=== PATIENT | female | born 1945 | race Hispanic/Latino ===

== ENCOUNTER → 2017-06-29 | Outpatient (CLI) | payer MEDICARE | END | disposition home or self-care (01) | LOC: RAH 10:48 | PROVIDERS: ATTEND Internal Medicine | DX: M41.55 Other secondary scoliosis, thoracolumbar region (principal) | CPT/HCPCS: 72082 ==

== ENCOUNTER → 2017-09-15 | Outpatient (CLI) | payer MEDICARE | END | disposition home or self-care (01) | LOC: OIH 11:01 | PROVIDERS: ATTEND Internal Medicine | DX: I70.0 Atherosclerosis of aorta (principal) | CPT/HCPCS: 71046 ==

== ENCOUNTER → 2018-06-07 | Outpatient (CLI) | payer MEDICARE | END | disposition home or self-care (01) | LOC: OIH 11:41 | PROVIDERS: ATTEND Internal Medicine | DX: S22.080A Wedge compression fracture of T11-T12 vertebra, initial encounter for closed fracture (principal); M85.88 Other specified disorders of bone density and structure, other site; M47.814 Spondylosis without myelopathy or radiculopathy, thoracic region; X58.XXXA Exposure to other specified factors, initial encounter; Y93.89 Activity, other specified; Y92.89 Other specified places as the place of occurrence of the external cause; Y99.8 Other external cause status | CPT/HCPCS: 72070 ==

== ENCOUNTER 2018-07-18 13:39 | Emergency (ER) | payer MEDICARE ==
[2018-07-18] MEDS ORDERED: IBUPROFEN 400 MG TABLET ONE (14:10)
[2018-07-18] MEDS ORDERED: ACETAMINOPHEN-CODEINE 300/30MG TAB ONE (15:04)
== END 2018-07-18 15:39 | disposition home or self-care (01) ==
LOC: EDH 13:39
DX: S42.292A Other displaced fracture of upper end of left humerus, initial encounter for closed fracture (principal); E11.9 Type 2 diabetes mellitus without complications; I10 Essential (primary) hypertension; E07.9 Disorder of thyroid, unspecified; M06.80 Other specified rheumatoid arthritis, unspecified site; Z90.710 Acquired absence of both cervix and uterus; Z88.1 Allergy status to other antibiotic agents; W18.39XA Other fall on same level, initial encounter; Y93.01 Activity, walking, marching and hiking; Y92.89 Other specified places as the place of occurrence of the external cause; Y99.8 Other external cause status
CPT/HCPCS: 73030; 73200

== ENCOUNTER → 2019-06-14 | Outpatient (CLI) | payer MEDICARE | END | disposition home or self-care (01) | LOC: RAH 09:50 | PROVIDERS: ATTEND Internal Medicine | DX: I27.0 Primary pulmonary hypertension (principal); R10.813 Right lower quadrant abdominal tenderness; J98.11 Atelectasis | CPT/HCPCS: 74176 ==

== ENCOUNTER → 2020-01-31 | Outpatient (CLI) | payer MEDICARE | END | disposition home or self-care (01) | LOC: SHCH 09:42 | PROVIDERS: ATTEND Internal Medicine Cardiovascular Disease | DX: I51.7 Cardiomegaly (principal); R01.0 Benign and innocent cardiac murmurs; K21.9 Gastro-esophageal reflux disease without esophagitis; I87.2 Venous insufficiency (chronic) (peripheral) | CPT/HCPCS: 93306; 93970 ==

== ENCOUNTER → 2020-02-02 | Outpatient (CLI) | payer MEDICARE ==
[~2020-02-02] MED LIST: REGADENOSON 0.4 MG/5 ML PF SYG IVP SCH
== END | disposition home or self-care (01) ==
LOC: SHCH 07:40
PROVIDERS: ATTEND Internal Medicine Cardiovascular Disease
DX: I20.9 Angina pectoris, unspecified (principal); R07.9 Chest pain, unspecified
CPT/HCPCS: 78452; 93017; 96374; A9500 ×2; J2785

== ENCOUNTER → 2020-02-22 | Outpatient (CLI) | payer MEDICARE | END | disposition home or self-care (01) | LOC: RAH 09:20 | PROVIDERS: ATTEND Internal Medicine | DX: K55.039 Acute (reversible) ischemia of large intestine, extent unspecified (principal); R10.9 Unspecified abdominal pain; M47.816 Spondylosis without myelopathy or radiculopathy, lumbar region; J98.11 Atelectasis; M43.8X4 Other specified deforming dorsopathies, thoracic region; Z90.710 Acquired absence of both cervix and uterus; Z95.0 Presence of cardiac pacemaker | CPT/HCPCS: 74176 ==

== ENCOUNTER 2021-01-23 10:49 | Observation (INO) | payer MEDICARE ==
[~2021-01-23] VITALS: Ht 160 cm; Wt 68.3 kg
[2021-01-23 10:53] VITALS: BP 150/63
[2021-01-23] MEDS ORDERED: ONDANSETRON 4MG INJ IVP SCH (12:00)
[2021-01-23] MEDS ORDERED: MORPHINE 4 MG SYG IV SCH (12:00)
[2021-01-23 12:18] LABS: BASOPHILS % (AUTO) 0.3 % (0.0-5.0); EOSINOPHILS % (AUTO) 0.1 % (0.0-8.0); HEMATOCRIT 39.7 % (36-48); LYMPHOCYTES % (AUTO) 8.6 % (21.0-51.0); MEAN CORPUSCULAR HEMOGLOBIN 26.4 pg (27.0-33.0); MEAN CORPUSCULAR HGB CONC 31.7 g/dL (32.0-36.0); MEAN CORPUSCULAR VOLUME 83.2 fL (79-99); NEUTROPHILS % (AUTO) 85.7 % (40.0-77.0); PLATELET COUNT (AUTO) 266 K/uL (130-400); RED BLOOD CELL COUNT(AUTO) 4.77 MIL/uL (4.00-5.50); RED CELL DISTRIBUTION WIDTH 14.2 % (11.0-15.5); WHITE BLOOD COUNT (AUTO) 15.1 K/uL (4.8-10.8)
[2021-01-23 12:27] LABS: CREATININE 0.7 mg/dL (0.5-1.5)
[2021-01-23 12:32] LABS: ALBUMIN 4.2 g/dL (3.5-5.0); BILIRUBIN,TOTAL 0.5 mg/dL (0.2-1.0); TOTAL PROTEIN, SERUM 8.6 g/dL (6.0-8.3)
[2021-01-23 13:27] VITALS: BP 176/61
[2021-01-23] MEDS ORDERED: INSULIN HUMULIN R 100 UNIT/ML 3ML ONE (16:40)
[2021-01-23] MEDS: ENOXAPARIN SODIUM 40 MG/0.4 ML SYRINGE SQ SCH (16:40)
[2021-01-23] MEDS: 1/2 NS 1000ML 1,000 ML IV SCH (16:50)
[2021-01-23 17:00] VITALS: BP 151/65
[2021-01-23] MEDS ORDERED: GLUCAGON 1MG KIT 1 MG ML IM PRN (17:00)
[2021-01-23] MEDS ORDERED: ONDANSETRON 4MG INJ IVP PRN (17:00)
[2021-01-23] MEDS ORDERED: DEXTROSE 50%-WATER 50 ML DISP.SYRIN IV PRN (17:00)
[2021-01-23] MEDS ORDERED: ACETAMINOPHEN WITH CODEINE 1 TAB TAB PO PRN (18:30)
[2021-01-23 19:51] VITALS: BP 151/65
[2021-01-23] MEDS: INSULIN R PO SS1 SQ SCH (21:24)
[2021-01-23 21:43] VITALS: BP 145/61
[2021-01-23 22:14] VITALS: BP 169/82
[2021-01-24 03:44] VITALS: BP 156/63
[2021-01-24] MEDS: 1/2 NS 1000ML 1,000 ML IV SCH ×2 (04:20→11:52)
[2021-01-24 04:56] LABS: BASOPHILS % (AUTO) 0.3 % (0.0-5.0); EOSINOPHILS % (AUTO) 0.6 % (0.0-8.0); HEMATOCRIT 33.1 % (36-48); LYMPHOCYTES % (AUTO) 24.7 % (21.0-51.0); MEAN CORPUSCULAR HEMOGLOBIN 26.6 pg (27.0-33.0); MEAN CORPUSCULAR HGB CONC 32.3 g/dL (32.0-36.0); MEAN CORPUSCULAR VOLUME 82.3 fL (79-99); MONOCYTES % (AUTO) 8.6 % (3.0-13.0); NEUTROPHILS % (AUTO) 64.9 % (40.0-77.0); PLATELET COUNT (AUTO) 237 K/uL (130-400); RED BLOOD CELL COUNT(AUTO) 4.02 MIL/uL (4.00-5.50); RED CELL DISTRIBUTION WIDTH 14.4 % (11.0-15.5); WHITE BLOOD COUNT (AUTO) 10.8 K/uL (4.8-10.8)
[2021-01-24 05:20] LABS: ALBUMIN 3.4 g/dL (3.5-5.0); BILIRUBIN,TOTAL 0.5 mg/dL (0.2-1.0); CREATININE 0.6 mg/dL (0.5-1.5); POTASSIUM 4.1 mmol/L (3.5-5.1); TOTAL PROTEIN, SERUM 7.3 g/dL (6.0-8.3)
[2021-01-24] MEDS: INSULIN R PO SS1 SQ SCH ×4 (05:53→21:49)
[2021-01-24 08:00] VITALS: BP 153/73
[2021-01-24] MEDS: ENOXAPARIN SODIUM 40 MG/0.4 ML SYRINGE SQ SCH (09:00)
[2021-01-24] MEDS ORDERED: LISI40TA9 PO (09:32)
[2021-01-24] MEDS ORDERED: AMLO-257 PO (09:32)
[2021-01-24] MEDS ORDERED: METO-391 PO (09:32)
[2021-01-24] MEDS ORDERED: METF-444 PO (09:32)
[2021-01-24] MEDS ORDERED: LEVO100C4 PO (09:32)
[2021-01-24] MEDS ORDERED: GABA600T10 PO (09:32)
[2021-01-24] MEDS ORDERED: PRAV40TA3 PO (09:32)
[2021-01-24] MEDS: HYDROMORPHONE 0.5 MG SYG (0.5MG/0.5ML) IVP PRN ×2 (09:44→19:18)
[2021-01-24 12:00] VITALS: BP 157/69
[2021-01-24 16:00] VITALS: BP 155/73
[2021-01-24 19:40] VITALS: BP 172/70
[2021-01-24 23:04] VITALS: BP 168/70
[2021-01-25] VITALS (20 sets, daily range): BP systolic 111–178; BP diastolic 48–69
[2021-01-25] MEDS: 1/2 NS 1000ML 1,000 ML IV SCH ×4 (00:37→17:45)
[2021-01-25] MEDS: HYDROMORPHONE 0.5 MG SYG (0.5MG/0.5ML) IVP PRN ×2 (00:51→14:10)
[2021-01-25] MEDS: INSULIN R PO SS1 SQ SCH ×4 (07:17→22:04)
[2021-01-25] MEDS: ENOXAPARIN SODIUM 40 MG/0.4 ML SYRINGE SQ SCH (08:22)
[2021-01-25] MEDS ORDERED: ROPIVACAINE 0.5% 5MG/ML 30ML IJ ONE (17:48)
[2021-01-25] MEDS ORDERED: DEXAMETHASONE SOD PHOSPHATE 10MG/ML 1ML VIAL ONE ×2 (18:00→18:28)
[2021-01-25] MEDS ORDERED: SUCCINYLCHOLINE CHLORIDE 20 MG/ML 10 ML VIAL ONE (18:00)
[2021-01-25] MEDS ORDERED: GLYCOPYRROLATE 1 MG/5 ML SYRINGE ONE (18:00)
[2021-01-25] MEDS ORDERED: LIDOCAINE PF 100MG/5ML (2%) SYRINGE 5ML ONE ×2 (18:00→20:19)
[2021-01-25] MEDS ORDERED: ONDANSETRON 4MG INJ ONE (18:00)
[2021-01-25] MEDS ORDERED: PROPOFOL 10 MG/ML 20ML VIAL IV ONE (18:01)
[2021-01-25] MEDS ORDERED: MIDAZOLAM HCL 1 MG/ML 2ML VIAL ONE (18:01)
[2021-01-25] MEDS ORDERED: NEOSTIGMINE 5MG/5ML SYR IV ONE (18:01)
[2021-01-25] MEDS ORDERED: ROCURONIUM 10MG/1ML SYR 10 MG/ML ML ONE (18:01)
[2021-01-25] MEDS ORDERED: FENTANYL CITRATE PF 50 MCG/1 ML 2ML VIAL ONE ×2 (18:02→19:49)
[2021-01-25] MEDS ORDERED: EPHEDRINE SULFATE 50 MG/ML AMPULE ONE (18:46)
[2021-01-25] MEDS ORDERED: CEFAZOLIN SODIUM 1 GM VIAL ONE (19:19)
[2021-01-25] MEDS ORDERED: OXYCODONE HCL 5 MG TAB PO PRN (20:30)
[2021-01-25] MEDS ORDERED: TRAMADOL HCL 50 MG TABLET PO PRN (20:30)
[2021-01-25] MEDS ORDERED: DIPHENHYDRAMINE HCL 25 MG CAPSULE PO PRN (20:30)
[2021-01-25] MEDS ORDERED: FERROUS FUMARATE 324 MG TABLET PO PRN (20:30)
[2021-01-25] MEDS ORDERED: KETOROLAC 15MG/ML VIAL (15MG/ML) IV PRN (20:30)
[2021-01-25] MEDS ORDERED: CALCIUM CARB 500MG PO PRN (20:30)
[2021-01-25] MEDS ORDERED: 0.9%NACL 1000ML 1,000 ML IV SCH (20:30)
[2021-01-25] MEDS ORDERED: DiphenhydrAMINE HCL 50 MG/ML VIAL IVP PRN (20:30)
[2021-01-25] MEDS ORDERED: POTASSIUM CHLORIDE 20MEQ/100ML 100 ML IV PRN (20:30)
[2021-01-25] MEDS: ACETAMINOPHEN 500 MG TABLET PO SCH (21:57)
[2021-01-26] VITALS (7 sets, daily range): BP systolic 118–158; BP diastolic 50–63
[2021-01-26] MEDS: CEFAZOLIN 3GM /D5W 100ML 100 ML IV SCH ×2 (01:50→10:15)
[2021-01-26] MEDS: ACETAMINOPHEN 500 MG TABLET PO SCH ×2 (03:50→12:13)
[2021-01-26] MEDS ORDERED: LEVOTHYROXINE 100 MCG TABLET ONE (06:15)
[2021-01-26] MEDS: INSULIN R PO SS1 SQ SCH ×3 (06:17→16:03)
[2021-01-26] MEDS ORDERED: LEVOTHYROXINE 100 MCG TABLET PO SCH (07:30)
[2021-01-26] MEDS ORDERED: AMLODIPINE 5 MG TAB PO SCH (09:00)
[2021-01-26] MEDS ORDERED: LISINOPRIL 40 MG TABLET PO SCH (09:00)
[2021-01-26] MEDS ORDERED: POLYETHYLENE GLYCOL 3350 17 GM POWD.PACK PO SCH (09:00)
[2021-01-26] MEDS ORDERED: PSYLLIUM SEED 1 EACH PACKET ONE (10:00)
[2021-01-26] MEDS: ENOXAPARIN SODIUM 40 MG/0.4 ML SYRINGE SQ SCH (10:17)
[2021-01-26] MEDS: METFORMIN HCL 500 MG TABLET PO SCH ×2 (10:18→15:58)
[2021-01-26] MEDS: OXYCODONE HCL 5 MG TAB PO PRN ×2 (10:21→15:55)
[2021-01-26] MEDS ORDERED: PSYLLIUM SEED 1 EACH PACKET PO SCH (12:00)
[2021-01-26] MEDS ORDERED: GABAPENTIN 300 MG CAPSULE PO SCH (21:00)
[2021-01-26] MEDS ORDERED: ATORVASTATIN 10 MG TABLET PO SCH (21:00)
[2021-01-26] MEDS ORDERED: INSULIN GLARGINE 100 UNITS/ML 10 ML VIAL SQ SCH (21:00)
[2021-01-26] MEDS ORDERED: METOPROLOL SUCCINATE 50 MG TAB.SR.24H PO SCH (21:00)
[2021-01-27] MEDS ORDERED: BISACODYL 5 MG TABLET.DR PO PRN (20:30)
[2021-01-28] MEDS ORDERED: BISACODYL 10 MG SUPP.RECT RC PRN (20:30)
== END 2021-01-26 20:00 | disposition home or self-care (01) ==
LOC: EDH 10:49 → EDHIP 12:18 → 3BH 20:49
PROVIDERS: ADMIT Internal Medicine; ATTEND Internal Medicine
DX: S42.301A Unspecified fracture of shaft of humerus, right arm, initial encounter for closed fracture (principal); Z20.822 Contact with and (suspected) exposure to COVID-19; S42.351A Displaced comminuted fracture of shaft of humerus, right arm, initial encounter for closed fracture; S00.83XA Contusion of other part of head, initial encounter; M19.011 Primary osteoarthritis, right shoulder; I10 Essential (primary) hypertension; E11.65 Type 2 diabetes mellitus with hyperglycemia; E03.9 Hypothyroidism, unspecified; Z79.4 Long term (current) use of insulin; W01.0XXA Fall on same level from slipping, tripping and stumbling without subsequent striking against object, initial encounter; Y93.89 Activity, other specified; Y92.89 Other specified places as the place of occurrence of the external cause; Y99.8 Other external cause status
CPT/HCPCS: 23472; 29105; 36415 ×2; 70450; 71045; 73030 ×2; 80053 ×2; 82948 ×13; 85025 ×2; 87635; 93005; 96361 ×4; 96365; 96366; 96372 ×2; 96375 ×2; 96376 ×2; 97161; 97530; 99285; A4649; A4930 ×2; A6219; A6223; C1776; G0378 ×76; G8978; G8979; G8980; G8981; G8982; G8983; J0330; J0690 ×3; J1100 ×2; J1170 ×5; J1650 ×2; J1815 ×8; J2001 ×2; J2250; J2270; J2405 ×2; J2704; J2710; J2795; J3010 ×2; J3490 ×2; J7030 ×2

== ENCOUNTER 2022-06-16 15:54 | Emergency (ER) | payer OTHER ==
[~2022-06-16] VITALS: Ht 160 cm; Wt 68.0 kg
[~2022-06-16 15:54] MED LIST changes: +AMLO-257 PO; +GABA600T10 PO; +LEVO100C4 PO; +LISI40TA9 PO; +METF-444 PO; +METO-391 PO; +PRAV40TA3 PO; -REGADENOSON 0.4 MG/5 ML PF SYG IVP SCH
[2022-06-16 16:25] VITALS: BP 167/73
[2022-06-16] MEDS ORDERED: IBUP-2070 PO (18:37)
[2022-06-16] MEDS ORDERED: ACETAMINOPHEN 500 MG TABLET PO ONE (19:00)
== END 2022-06-16 19:06 | disposition home or self-care (01) ==
LOC: EDH 15:54
DX: S82.002A Unspecified fracture of left patella, initial encounter for closed fracture (principal); E11.9 Type 2 diabetes mellitus without complications; I10 Essential (primary) hypertension; E03.9 Hypothyroidism, unspecified; Z98.890 Other specified postprocedural states; W01.0XXA Fall on same level from slipping, tripping and stumbling without subsequent striking against object, initial encounter; Y93.89 Activity, other specified; Y92.008 Other place in unspecified non-institutional (private) residence as the place of occurrence of the external cause; Y99.8 Other external cause status
CPT/HCPCS: 29505; 73562

== ENCOUNTER → 2023-06-05 | Outpatient (CLI) | payer OTHER ==
[~2023-06-05] MED LIST changes: +IBUP-2070 PO
== END | disposition home or self-care (01) ==
LOC: SHCH 11:28
PROVIDERS: ATTEND Internal Medicine
DX: I65.23 Occlusion and stenosis of bilateral carotid arteries (principal)
CPT/HCPCS: 93880

== ENCOUNTER → 2023-07-02 | Outpatient (CLI) | payer OTHER | END | disposition home or self-care (01) | LOC: SHCH 14:35 | PROVIDERS: ATTEND Internal Medicine | DX: I08.8 Other rheumatic multiple valve diseases (principal); I11.9 Hypertensive heart disease without heart failure; E11.9 Type 2 diabetes mellitus without complications | CPT/HCPCS: 93306 ==

== ENCOUNTER → 2023-07-21 | Outpatient (CLI) | payer OTHER | END | disposition home or self-care (01) | LOC: RAH 10:28 | PROVIDERS: ATTEND Internal Medicine | DX: I16.0 Hypertensive urgency (principal) | CPT/HCPCS: 76770; 93975 ==

== ENCOUNTER → 2024-02-25 | Outpatient (CLI) | payer OTHER ==
[~2024-02-25] MED LIST changes: +GABA-1405 PO; -GABA600T10 PO
== END | disposition home or self-care (01) ==
LOC: RAH 09:55
PROVIDERS: ATTEND Internal Medicine
DX: Z13.820 Encounter for screening for osteoporosis (principal); M81.0 Age-related osteoporosis without current pathological fracture; M85.88 Other specified disorders of bone density and structure, other site
CPT/HCPCS: 77080